=== PATIENT | female | born 1935 | race Caucasian/White ===

== ENCOUNTER 2018-08-12 10:35 | Outpatient (CLI) ==
--- NOTE | 2018-08-12 12:00 | US ---
EXAM: Bilateral carotid artery Doppler History: Dizziness. Technique: Multiple sonographic images through the bilateral internal carotid arteries were obtained . Color duplex Doppler was used to interrogate vascular flow. Findings: The right ICA peak systolic velocity is within normal limits measuring 0.9 meters per second. The ri ght ICA/cca PSV ratio is normal at 1.1. The right vertebral artery is patent and demonstrates antegr dawyne flow. Anthony scale images demonstrate mild to moderate plaque buildup within the right internal ca rotid artery. The left ICA peak systolic velocity is within normal limits measuring 0.9 meters per second. The lef t ICA/cca PSV ratio is normal at 1.3. The left vertebral artery is patent and demonstrates antegrade flow. Anthony scale images demonstrate mild to moderate plaque buildup within the left internal caroti d artery Impression: No significant hemodynamic stenosis of the bilateral internal carotid arteries
== END 2018-08-12 10:36 | disposition home or self-care (01) ==
LOC: RAD 10:35
PROVIDERS: ATTEND Family Medicine
DX: R42 Dizziness and giddiness (principal); H53.2 Diplopia
CPT/HCPCS: 93005; 93010